=== PATIENT | female | born 1995 | race Caucasian/White ===

== ENCOUNTER 2017-09-18 23:54 | Emergency (ER) | payer OTHER ==
[~2017-09-18] VITALS: Ht 165.1 cm; Wt 78.1 kg
[2017-09-19] MEDS ORDERED: ONDANSETRON INJ 2 MG/ML 2 ML VIAL IV STA
[2017-09-19] MEDS ORDERED: SODIUM CHLORIDE 0.9% 500ML 500 ML IV STA
[2017-09-19 00:03] VITALS: TEMP 36.6; O2SAT 97; Ht 165.1 cm; Wt 78.1 kg
[2017-09-19 00:29] LABS: BASO % 0.2 %; BASO ABS # 0.02 K/uL (0-0.2); EOS % 1.6 %; EOS ABS # 0.14 K/uL (0-0.5); HEMATOCRIT 41.7 % (37-47); HEMOGLOBIN 14.5 g/dL (12.0-16.0); IG# 0.02 K/uL (0.00-0.02); LYMPH % 38.7 %; LYMPH ABS # 3.38 K/uL (1.2-3.4); MEAN CELL VOLUME 89.1 fL (80-100); MEAN CORPUSCULAR HGB CONC 34.8 g/dl (32-36); MEAN PLATELET VOLUME 10.1 fL (7.4-10.4); MONO % 6.2 %; MONO ABS # 0.54 K/uL (0.11-0.59); NEUT % 53.1 %; NEUT ABS # 4.64 K/uL (1.4-6.5); PLATELET COUNT 213 K/uL (130-400); RED CELL DISTRIBUTION WIDTH CV 12.7 % (11.5-14.5); RED CELL DISTRIBUTION WIDTH SD 40.4 fL (36.4-46.3); WHITE BLOOD COUNT 8.74 K/uL (4.8-10.8)
[2017-09-19 00:47] LABS: ALBUMIN 4.2 gm/dl (3.4-5.0); CALCIUM 8.4 mg/dl (8.5-10.1); CREATININE 0.89 mg/dl (0.60-1.20); POTASSIUM 3.4 mmol/L (3.5-5.1)
[2017-09-19 00:50] LABS: TOTAL PROTEIN 7.6 gm/dl (6.4-8.2)
--- NOTE | 2017-09-19 02:50 | EMERGENCY ROOM VISIT NOTE ---
History Report prepared by Ros: Mila An Under the Supervision of: Dr. Itzel Griffin D.O. First contact with patient: 23:54 Chief Complaint: ALCOHOL OVERDOSE Stated Complaint: ALCOHOL OVERDOSE History of Present Illness The patient is a 22 year old female who presents to the Emergency Room with complaints of an episode of alcohol overdose occurring prior to arrival. Per EMS , they found her in her bed. They report that she was at a house libertarian and fell down 15 steep stairs. They state that they were told she walked back up to bed and fell asleep, but her friends were concerned. They note that the friends were also intoxicated. HPI and ROS limited secondary to alcohol intoxication. Source of History: EMS History Limited By: intoxication Onset: prior to arrival Position: other (global) Quality: other (overdose) Timing: other (episode) Review of Systems HPI and ROS limited secondary to alcohol intoxication. Family History No pertinent family history Social History Alcohol Use: heavy Marital Status: single Housing Status: lives with roommate Occupation Status: [employer] Current/Historical Medications Unable to Obtain Active Prescriptions or Reported Meds Physical Exam Vital Signs Date Time Temp Pulse Resp B/P (MAP) Pulse Ox O2 Delivery O2 Flow Rate FiO2 09/19/17 06:44 65 18 113/68 98 09/19/17 05:07 72 18 107/62 96 Room Air 09/19/17 04:21 78 09/19/17 03:13 71 16 107/62 95 Room Air 09/19/17 00:16 70 09/19/17 00:03 36.6 73 16 124/77 97 Room Air 09/19/17 00:03 97 Room Air Physical Exam GENERAL: well appearing, well nourished, no distress, non-toxic, minimally reactive, heaving in the ER. HEAD: normal cephalic, atraumatic EYE EXAM: normal conjunctiva, PERRL and EOM's grossly intact OROPHARYNX: no exudate, no erythema, lips, buccal mucosa, and tongue normal and mucous membranes are moist EARS: TMs clear b/l NECK: supple, no nuchal rigidity, no adenopathy, non-tender, collar in place upon arrival. CHEST: stable to compression anteriorly and posteriorly LUNGS: clear to auscultation. Normal chest wall mechanics HEART: no murmurs, S1 normal and S2 normal ABDOMEN: abdomen soft, non-tender, normo-active bowel sounds, no masses, no rebound or guarding. PELVIS: stable to compression anteriorly and posteriorly BACK: Back is symmetrical on inspection and there is no deformity, no midline tenderness, no CVA tenderness. UPPER EXTREMITIES: full active and passive range of motion of all joints without tenderness to palpation, no obvious signs of trauma or deformities. LOWER EXTREMITIES: full active and passive range of motion of all joints without tenderness to palpation, no obvious signs of trauma or deformities. NEURO EXAM: Normal sensorium, cranial nerves II-XII grossly intact, normal speech, no gross weakness of arms, no gross weakness of legs. GCS: 15. Medical Decision & Procedures ER Provider Diagnostic Interpretation: Radiology results have been interpreted by the radiologist and reviewed by me. PELVIS 1 OR 2 VIEW ROUTINE CLINICAL HISTORY: trauma, etoh trauma COMPARISON: None. DISCUSSION: The bones and joint spaces appear intact. There is no evidence of fracture, dislocation or bony disease. There is no evidence for soft tissue swelling. IMPRESSION: Negative study. The above report was generated using voice recognition software. It may contain grammatical, syntax or spelling errors. Electronically signed by: Gurmeet Betts M.D. 09/19/2017 6:10 AM Dictated Date/Time: 09/19/2017 6:10 AM HEAD WITHOUT CONTRAST (CT) CT DOSE: HISTORY: Trauma. Mental status change. etoh, trauma TECHNIQUE: Multiaxial CT images of the head were performed without the use of intravenous contrast. A dose lowering technique was utilized adhering to the principles of ALARA. Comparison: None. Findings: The paranasal sinuses are clear. Mild mucosal thickening left mastoid air cells.. The calvarium and skull base are intact. The ventricles and sulci are within normal limits. There is no mass, hematoma, midline shift, or acute infarct. Impression: No acute intracranial abnormality. Mild mucosal thickening left mastoid air cells. The above report was generated using voice recognition software. It may contain grammatical, syntax or spelling errors. Electronically signed by: Gurmeet Betts M.D. 09/19/2017 6:13 AM Dictated Date/Time: 09/19/2017 6:12 AM CHEST ONE VIEW PORTABLE CLINICAL HISTORY: trauma, etoh trauma COMPARISON STUDY: No previous studies for comparison. FINDINGS: The bones soft tissues and hemidiaphragms are normal. The cardiomediastinal silhouette is normal. The lungs are clear. The pulmonary vasculature is normal. IMPRESSION: Negative chest. The above report was generated using voice recognition software. It may contain grammatical, syntax or spelling errors. Electronically signed by: Gurmeet Betts M.D. 09/19/2017 6:10 AM Dictated Date/Time: 09/19/2017 6:09 AM CERVICAL SPINE W/O CT DOSE: 1088.00 mGy.cm HISTORY: Trauma trauma, etoh TECHNIQUE: Multiaxial CT images of the cervical spine were performed and reformatted in the sagittal and coronal plane without the use of contrast. A dose lowering technique was utilized adhering to the principles of ALARA. COMPARISON: None. FINDINGS: No fractures. No subluxation. Prevertebral soft tissues and the C1-C2 interval are intact. No pneumothorax. IMPRESSION: No fractures within the cervical spine. The above report was generated using voice recognition software. It may contain grammatical, syntax or spelling errors. Electronically signed by: Gurmeet Betts M.D. 09/19/2017 6:16 AM Dictated Date/Time: 09/19/2017 6:15 AM Laboratory Results 09/19/17 00:15 Red Blood Count 4.68, Mean Corpuscular Volume 89.1, Mean Corpuscular Hemoglobin 31.0, Mean Corpuscular Hemoglobin Concent 34.8, Mean Platelet Volume 10.1, Neutrophils (%) (Auto) 53.1, Lymphocytes (%) (Auto) 38.7, Monocytes (%) (Auto) 6.2, Eosinophils (%) (Auto) 1.6, Basophils (%) (Auto) 0.2, Neutrophils # (Auto) 4.64, Lymphocytes # (Auto) 3.38, Monocytes # (Auto) 0.54, Eosinophils # (Auto) 0.14, Basophils # (Auto) 0.02 09/19/17 00:15 Test 09/19/17 00:15 White Blood Count 8.74 K/uL (4.8-10.8) Red Blood Count 4.68 M/uL (4.2-5.4) Hemoglobin 14.5 g/dL (12.0-16.0) Hematocrit 41.7 % (37-47) Mean Corpuscular Volume 89.1 fL (80-100) Mean Corpuscular Hemoglobin 31.0 pg (25-34) Mean Corpuscular Hemoglobin Concent 34.8 g/dl (32-36) Platelet Count 213 K/uL (130-400) Mean Platelet Volume 10.1 fL (7.4-10.4) Neutrophils (%) (Auto) 53.1 % Lymphocytes (%) (Auto) 38.7 % Monocytes (%) (Auto) 6.2 % Eosinophils (%) (Auto) 1.6 % Basophils (%) (Auto) 0.2 % Neutrophils # (Auto) 4.64 K/uL (1.4-6.5) Lymphocytes # (Auto) 3.38 K/uL (1.2-3.4) Monocytes # (Auto) 0.54 K/uL (0.11-0.59) Eosinophils # (Auto) 0.14 K/uL (0-0.5) Basophils # (Auto) 0.02 K/uL (0-0.2) RDW Standard Deviation 40.4 fL (36.4-46.3) RDW Coefficient of Variation 12.7 % (11.5-14.5) Immature Granulocyte % (Auto) 0.2 % Immature Granulocyte # (Auto) 0.02 K/uL (0.00-0.02) Anion Gap 12.0 mmol/L (3-11) Est Creatinine Clear Calc Drug Dose 102.4 ml/min Estimated GFR () 106.6 Estimated GFR (Non- 92.0 BUN/Creatinine Ratio 11.4 (10-20) Calcium Level 8.4 mg/dl (8.5-10.1) Total Bilirubin 0.5 mg/dl (0.2-1) Aspartate Amino Transf (AST/SGOT) 13 U/L (15-37) Alanine Aminotransferase (ALT/SGPT) 16 U/L (12-78) Alkaline Phosphatase 61 U/L (45-117) Total Protein 7.6 gm/dl (6.4-8.2) Albumin 4.2 gm/dl (3.4-5.0) Globulin 3.4 gm/dl (2.5-4.0) Albumin/Globulin Ratio 1.2 (0.9-2) Human Chorionic Gonadotropin, Qual NEG (NEG) Ethyl Alcohol mg/dL 261.0 mg/dl (0-3) Laboratory results per my review. Medications Administered Medications (Trade) Dose Ordered Sig/Daniel Route Start Time Stop Time Status Last Admin Dose Admin Sodium Chloride 500 ml @ 999 mls/hr Q31M STAT IV 09/19/17 00:00 09/19/17 00:30 DC 09/19/17 00:17 999 MLS/HR Ondansetron HCl (Zofran Inj) 4 mg NOW STAT IV 09/19/17 00:00 09/19/17 00:01 DC 09/19/17 00:17 4 MG ED Course 2355: The patient was evaluated in room B3B. A complete history and physical exam was performed. 0000: Ordered Zofran Inj 4 mg IV, NSS 500 ml @ 999 mls/hr IV. 0230: I reevaluated the patient and she is asleep. 0605: I reevaluated the patient and she remembers being at the libertarian. She doesn' t remember falling down all the stairs there. Patient denies any current pain. 0626: Upon reevaluation, the patient is feeling better. She denies pain, a headache, and feels okay. I discussed the findings and the treatment plan with the patient. Discussed closed head injury/concussion symptoms and precautions. She verbalizes agreement and understanding. The patient was discharged home. Medical Decision Differential diagnoses include alcohol intoxication, drug overdose, hypoglycemia , major intracranial, cervical, spinal, thoracic, abdominal, pelvic and neurologic injury. Fracture, contusion, sprain, strain, laceration, abrasions included as well. Patient monitored here for several hours, imaging and labs performed is precaution given possible trauma. Patient awoke more sober, and had no complaints on reevaluation. Vital signs stable throughout. Patient cautioned regarding excessive alcohol consumption, increased risks of trauma while intoxicated, possible occult injuries given possible trauma tonight, discussed symptoms to watch and return for, she verbalized understanding was agreeable with plan. I have a low suspicion for any occult traumatic injury. Medication Reconcilliation Current Medication List: was personally reviewed by me Blood Pressure Screening Patient's blood pressure: Normal blood pressure Blood pressure disposition: Did not require urgent referral Impression Primary Impression: Alcoholic intoxication Additional Impressions: Fall CHI (closed head injury) Scribe Attestation The scribe's documentation has been prepared under my direction and personally reviewed by me in its entirety. I confirm that the note above accurately reflects all work, treatment, procedures, and medical decision making performed by me. Departure Information Dispostion Home / Self-Care Prescriptions Unable to Obtain Active Prescriptions or Reported Meds Referrals [facility] (PCP) Forms HOME CARE DOCUMENTATION FORM, IMPORTANT VISIT INFORMATION Patient Instructions My [facility] Additional Instructions Please drink responsibly and in a safe location. Do not drink and drive. If you have any worsening worsening headaches, vision changes, dizziness, nausea/ vomiting, or you have any other new or concerning symptoms, please return to the emergency room. Problem Qualifiers Primary Impression: Alcoholic intoxication Complication of substance-induced condition: uncomplicated Qualified Codes: F10.920 - Alcohol use, unspecified with intoxication, uncomplicated Additional Impressions: Fall Encounter type: initial encounter Qualified Codes: W19.XXXA - Unspecified fall, initial encounter CHI (closed head injury) Encounter type: initial encounter Qualified Codes: S09.90XA - Unspecified injury of head, initial encounter
--- NOTE | 2017-09-19 06:11 | DIAGNOSTIC IMAGING REPORT ---
PELVIS 1 OR 2 VIEW ROUTINE CLINICAL HISTORY: trauma, etoh trauma COMPARISON: None. DISCUSSION: The bones and joint spaces appear intact. There is no evidence of fracture, dislocation or bony disease. There is no evidence for soft tissue swelling. IMPRESSION: Negative study. The above report was generated using voice recognition software. It may contain grammatical, syntax or spelling errors. Electronically signed by: Gurmeet Betts M.D. 09/19/2017 6:10 AM Dictated Date/Time: 09/19/2017 6:10 AM
--- NOTE | 2017-09-19 06:11 | DIAGNOSTIC IMAGING REPORT ---
CHEST ONE VIEW PORTABLE CLINICAL HISTORY: trauma, etoh trauma COMPARISON STUDY: No previous studies for comparison. FINDINGS: The bones soft tissues and hemidiaphragms are normal. The cardiomediastinal silhouette is normal. The lungs are clear. The pulmonary vasculature is normal. IMPRESSION: Negative chest. The above report was generated using voice recognition software. It may contain grammatical, syntax or spelling errors. Electronically signed by: Gurmeet Betts M.D. 09/19/2017 6:10 AM Dictated Date/Time: 09/19/2017 6:09 AM
--- NOTE | 2017-09-19 06:14 | DIAGNOSTIC IMAGING REPORT ---
HEAD WITHOUT CONTRAST (CT) CT DOSE: HISTORY: Trauma. Mental status change. etoh, trauma TECHNIQUE: Multiaxial CT images of the head were performed without the use of intravenous contrast. A dose lowering technique was utilized adhering to the principles of ALARA. Comparison: None. Findings: The paranasal sinuses are clear. Mild mucosal thickening left mastoid air cells.. The calvarium and skull base are intact. The ventricles and sulci are within normal limits. There is no mass, hematoma, midline shift, or acute infarct. Impression: No acute intracranial abnormality. Mild mucosal thickening left mastoid air cells. The above report was generated using voice recognition software. It may contain grammatical, syntax or spelling errors. Electronically signed by: Gurmeet Betts M.D. 09/19/2017 6:13 AM Dictated Date/Time: 09/19/2017 6:12 AM
--- NOTE | 2017-09-19 06:17 | DIAGNOSTIC IMAGING REPORT ---
CERVICAL SPINE W/O CT DOSE: 1088.00 mGy.cm HISTORY: Trauma trauma, etoh TECHNIQUE: Multiaxial CT images of the cervical spine were performed and reformatted in the sagittal and coronal plane without the use of contrast. A dose lowering technique was utilized adhering to the principles of ALARA. COMPARISON: None. FINDINGS: No fractures. No subluxation. Prevertebral soft tissues and the C1-C2 interval are intact. No pneumothorax. IMPRESSION: No fractures within the cervical spine. The above report was generated using voice recognition software. It may contain grammatical, syntax or spelling errors. Electronically signed by: Gurmeet Betts M.D. 09/19/2017 6:16 AM Dictated Date/Time: 09/19/2017 6:15 AM
[2017-09-19 06:44] VITALS: BP 113/68; PULSE 65; O2SAT 98
== END 2017-09-19 06:40 | disposition home or self-care (01) ==
LOC: EDBD 23:54 → C.EDB 23:56
DX: F10.920 Alcohol use, unspecified with intoxication, uncomplicated (principal); S09.90XA Unspecified injury of head, initial encounter; W10.9XXA Fall (on) (from) unspecified stairs and steps, initial encounter